=== PATIENT | male | born 1965 | race Caucasian/White ===

== ENCOUNTER 2018-01-24 10:48 | Emergency (ER) | payer SELFPAY ==
[~2018-01-24] VITALS: Ht 175.3 cm; Wt 74.8 kg
--- NOTE | 2018-01-24 10:48 | NUR ---
PT [employer] TO ER BED 08
[2018-01-24 10:54] VITALS: BP 150/94
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
[2018-01-24 11:19] VITALS: BP 180/94
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
== END 2018-01-24 11:21 ==
LOC: MED 10:48
DX: Z04.1 Encounter for examination and observation following transport accident (principal); F10.99 Alcohol use, unspecified with unspecified alcohol-induced disorder; X58.XXXA Exposure to other specified factors, initial encounter; Y93.89 Activity, other specified; Y92.89 Other specified places as the place of occurrence of the external cause; Y99.8 Other external cause status
CPT/HCPCS: 99283